=== PATIENT | male | born 1940 | race Caucasian/White ===

== ENCOUNTER → 2019-03-24 | Outpatient (CLI) | payer MEDICARE ==
--- NOTE | 2019-03-24 14:06 | Diagnostic Imaging Report ---
EXAM: CHEST 2 VIEWS DATE: 03/24/2019 1:31 PM INDICATION: Preoperative evaluation COMPARISON: None FINDINGS: The trachea is midline. The lungs are symmetrically expanded without evidence for large focal consolidation, pneumothorax, or significant pleural effusion. The cardiomediastinal silhouette and pulmonary vasculature are within normal limits. The visualized osseous structures demonstrate degenerative changes. No acute osseous abnormality is identified. The surrounding soft tissues are unremarkable. IMPRESSION: No acute cardiopulmonary process identified. Signed by: Dr. Marciano Roman MD on 03/24/2019 2:02 PM
== END ==
LOC: RAD 13:22
PROVIDERS: ATTEND Internal Medicine
DX: Z01.810 Encounter for preprocedural cardiovascular examination (principal)
CPT/HCPCS: 71046

== ENCOUNTER → 2020-08-17 | Outpatient (CLI) | payer MEDICARE ==
[~2020-08-17] MED LIST: ASPIRIN325 MG PO; GLUCOSAMINE 1,1 EACH PO; HYDROXYZINE HCL25 MG PO; LOSARTAN-HCTZ1 EACH PO; NORCO 5-325 TA1 EACH PO; ONE DAILY COMP1 EACH PO; TUMS200 MG PO; ULTRAM50 MG PO; ZYRTEC10 M3 PO
== END ==
LOC: RAD 11:16
PROVIDERS: ATTEND Internal Medicine
DX: R60.0 Localized edema (principal)
CPT/HCPCS: 93971

== ENCOUNTER → 2020-09-02 | Outpatient (CLI) | payer MEDICARE | LOC: RAD 14:55 | PROVIDERS: ATTEND Internal Medicine | DX: J70.5 Respiratory conditions due to smoke inhalation (principal) | CPT/HCPCS: 71046 ==